=== PATIENT | female | born 1990 | race Caucasian/White ===

== ENCOUNTER 2016-07-23 12:45 | Emergency (ER) | payer OTHER ==
[~2016-07-23 12:45] MED LIST: ACET65SU PR; PRE-TAB3 PO
[2016-07-23] MEDS ORDERED: TETRACAINE 0.5% OPHTH SOLN 4ML As Ordered ONE (13:33)
--- NOTE | 2016-07-23 13:58 | EDDOCDS ---
Nurse's Notes [facility] Name: Ema Brice Age: 26 yrs Sex: Female : 1990 Arrival Date: 07/23/2016 Time: 12:45 Bed I10 / 23 Private MD: Kellie Vanessa Abdul Diagnosis: Injury of conjunctiva and corneal abrasion without foreign body, right eye Presentation: 07/23 12:55 Presenting complaint: Patient states: "my son scratched the inside of my eye." Pt ead reports incident occurred at approx 0900 this morning. Reports pain to right eye, difficult to keep open. Mechanism of Injury: No Mechanism of Injury. The patient denies any loss of vision. Adult Sepsis Screening: The patient does not have new or worsening altered mentation. Patient's respiratory rate is less than 22. Systolic blood pressure is greater than 100. Patient has a qSOFA score of 0- Negative Sepsis Screen. Suicide/Homicide risk assessment- the patient denies having any suicidal and/or homicidal ideations and does not present with any other emotional, behavioral or mental health complaints. Status: Patient is not a dining services director or dependent. Transition of care: patient was not received from another setting of care. 12:55 Acuity: NADEEM Level 4 ead 12:55 Method Of Arrival: Walkin/Carried/Asstd ead Triage Assessment: 12:57 General: Appears in no apparent distress, Behavior is appropriate for age, cooperative. ead Pain: Location: right eye Pain currently is 5 out of 10 on a pain scale. HIV screening NA for this visit Offered previously. EENT: Reports pain in right eye. Respiratory: Airway is patent Respiratory effort is even, unlabored. Derm: Skin is pink, warm & dry. 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 Prozac 20 mg Oral cap once daily 2. Xanax 1 mg Oral tab 3 times per day - PMHx: Anxiety; - PSHx: none; - Social history: Smoking status: Patient uses tobacco products, current every day smoker. No barriers to communication noted, The patient speaks fluent Yoruba, Speaks appropriately for age. - Family history: Not pertinent. - : The pt / caregiver states he / she is not on anticoagulants. Home medication list is obtained from the patient. - Exposure Risk Screening:: None identified. Screenin:55 Screening information is obtained from the patient. Fall risk: No risks identified. mk4 Assistance ADL's: requires no assistance with activities of daily living. Abuse/DV Screen: The patient / caregiver reports he/she is: not in a situation that causes fear, pain or injury. Nutritional screening: No deficits noted. Advance Directives: Currently, there is no health care proxy. There is no active DNR order. There is no living will. There is no Power of Records Management Coordinator. Advance directive information has not previously been placed in an [facility] medical record. Further advance directive information is declined. home support is adequate. Assessment: 13:55 General: Appears in no apparent distress, comfortable, Behavior is cooperative. mk4 Vital Signs: 12:47 BP 110 / 65; Pulse 75; Resp 18 S; Temp 96.4(O); Pulse Ox 100% on R/A; Weight 80.29 kg; gr2 Height 5 ft. 7 in. (170.18 cm) (R); Pain 6/10; 12:47 Body Mass Index 27.72 (80.29 kg, 170.18 cm) gr2 Vitals: 12:47 Log In Time: July 23, 2016 at 12:47. RN notified that patient meets Red Flag gr2 criteria. ED Course: 12:47 Patient visited by Rita Potter. gr2 12:47 Kellei Vanessa is Private Physician. gr2 12:47 Patient moved to Waiting gr2 12:55 Patient visited by Rita Potter. gr2 12:55 Patient moved to Pre RCE gr2 12:56 Triage Initiated ead 13:29 Lavinia Casas MD is Attending Physician. sd1 13:29 Patient moved to I10 23 ead 13:31 Patient visited by Lavinia Casas MD. sd1 13:38 Kellie Vanessa is Referral Physician. sd1 13:38 Levy Eagle is Referral Physician. sd1 13:55 The patient / caregiver is instructed regarding the plan of care and ED course. mk4 13:55 No IV's were initiated during this patient's visit. No procedures done that require mk4 assistance. Order Results: There are currently no results for this order. Outcome: 13:39 Discharge ordered by Provider. sd1 13:55 Discharge Assessment: Patient awake, alert and oriented x 3. No cognitive and/or mk4 functional deficits noted. Patient verbalized understanding of disposition instructions. Patient awake and alert. Discharge Assessment: patient administered narcotics - no. The following High Risk Discharge criteria are identified: None. Condition: good Condition: stable. No special radiology studies were completed. Property sent home with patient. 13:57 Patient left the ED. mk4 Signatures: Lavinia Casas MD MD sd1 Rita Potter gr2 Katarina Palmer, RN RN mk4 Florecita CisnerosRN RN dony ZULEMA
--- NOTE | 2016-07-23 13:58 | EDDOCDS ---
Physician Documentation [facility] Name: Ema Brice Age: 26 yrs Sex: Female : 1990 Arrival Date: 07/23/2016 Time: 12:45 Bed I10 / 23 Private MD: Kellie Vanessa Abdul Disposition: 07/23/16 13:39 Discharged to Home/Self Care. Impression: Injury of conjunctiva and corneal abrasion without foreign body, right eye. - Condition is Stable. - Discharge Instructions: Corneal Abrasion, Corneal Abrasion, [id number]. - Prescriptions for Percocet 5- 325 mg Oral Tablet - take 1 tablet by ORAL route every 6 hours As needed MDD: 4 tabs; 10 tablet. Erythromycin 5 mg/gram (0.5 %) Ophthalmic Ointment - apply 1 ribbon by OPHTHALMIC route every 8 hours; 1 tube. - Medication Reconciliation, Local Pharmacy Hours form. - Follow up: Kellie Vanessa; When: Call to arrange an appointment. Follow up: Levy Eagle; When: Call to arrange an appointment. - Problem is new. - Symptoms have improved. Historical: - Allergies: Naproxen; - Home Meds: 1. Prozac 20 mg Oral cap once daily 2. Xanax 1 mg Oral tab 3 times per day - PMHx: Anxiety; - PSHx: none; - Social history: Smoking status: Patient uses tobacco products, current every day smoker. No barriers to communication noted, The patient speaks fluent Mozambican, Speaks appropriately for age. - Family history: Not pertinent. - : The pt / caregiver states he / she is not on anticoagulants. Home medication list is obtained from the patient. - Exposure Risk Screening:: None identified. 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 7 in. (170.18 cm) (R); Pain 6/10; 12:47 Body Mass Index 27.72 (80.29 kg, 170.18 cm) gr2 MDM: 13:33 Visual Acuity ordered. sd1 13:54 Financial registration complete. lg Signatures: Lavinia Casas MD MD sd1 Maribel Zaman, Anderson Reg Katarina Palmer RN RN mk4 Florecita Cisneros RN RN dony MTDD
--- NOTE | 2016-07-25 14:58 | EDDOCDS ---
Physician Documentation [facility] Name: Ema Brice Age: 26 yrs Sex: Female : 1990 Arrival Date: 07/23/2016 Time: 12:45 Bed I10 / 23 Private MD: Kellie Vanessa Abdul Disposition: 07/23/16 13:39 Discharged to Home/Self Care. Impression: Injury of conjunctiva and corneal abrasion without foreign body, right eye. - Condition is Stable. - Discharge Instructions: Corneal Abrasion, Corneal Abrasion, [id number]. - Prescriptions for Percocet 5- 325 mg Oral Tablet - take 1 tablet by ORAL route every 6 hours As needed MDD: 4 tabs; 10 tablet. Erythromycin 5 mg/gram (0.5 %) Ophthalmic Ointment - apply 1 ribbon by OPHTHALMIC route every 8 hours; 1 tube. - Medication Reconciliation, Local Pharmacy Hours form. - Follow up: Kellie Vanessa; When: Call to arrange an appointment. Follow up: Levy Eagle; When: Call to arrange an appointment. - Problem is new. - Symptoms have improved. Historical: - Allergies: Naproxen; - Home Meds: 1. Prozac 20 mg Oral cap once daily 2. Xanax 1 mg Oral tab 3 times per day - PMHx: Anxiety; - PSHx: none; - Social history: Smoking status: Patient uses tobacco products, current every day smoker. No barriers to communication noted, The patient speaks fluent Turkish, Speaks appropriately for age. - Family history: Not pertinent. - : The pt / caregiver states he / she is not on anticoagulants. Home medication list is obtained from the patient. - Exposure Risk Screening:: None identified. 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 7 in. (170.18 cm) (R); Pain 6/10; 12:47 Body Mass Index 27.72 (80.29 kg, 170.18 cm) gr2 MDM: 13:33 Visual Acuity ordered. sd1 13:54 Financial registration complete. lg 14:29 [facility] Payment Agreement was scanned into [employer]GEN and attached to record. lg 15:12 T-Sheet-- Draft Copy was scanned into authorGEN and attached to record. gb Signatures: Lavinia Casas MD MD sd1 Roseann More, Reg Reg gb Maribel Zaman, Reg Reg lg Katarina Palmer RN RN mk4 Florecita CisnerosRN RN dony The chart was reviewed and I authenticate all verbal orders and agree with the evaluation and treatment provided.Attachments: 14:29 [facility] Payment Agreement lg 15:12 T-Sheet-- Draft Copy gb Chart Complete MTDD
--- NOTE | 2016-07-25 14:58 | EDDOCDS ---
Physician Documentation [facility] Name: Ema Brice Age: 26 yrs Sex: Female : 1990 Arrival Date: 07/23/2016 Time: 12:45 Bed I10 / 23 Private MD: Kellie Vanessa Abdul Disposition: 07/23/16 13:39 Discharged to Home/Self Care. Impression: Injury of conjunctiva and corneal abrasion without foreign body, right eye. - Condition is Stable. - Discharge Instructions: Corneal Abrasion, Corneal Abrasion, [id number]. - Prescriptions for Percocet 5- 325 mg Oral Tablet - take 1 tablet by ORAL route every 6 hours As needed MDD: 4 tabs; 10 tablet. Erythromycin 5 mg/gram (0.5 %) Ophthalmic Ointment - apply 1 ribbon by OPHTHALMIC route every 8 hours; 1 tube. - Medication Reconciliation, Local Pharmacy Hours form. - Follow up: Kellie Vanessa; When: Call to arrange an appointment. Follow up: Levy Eagle; When: Call to arrange an appointment. - Problem is new. - Symptoms have improved. Historical: - Allergies: Naproxen; - Home Meds: 1. Prozac 20 mg Oral cap once daily 2. Xanax 1 mg Oral tab 3 times per day - PMHx: Anxiety; - PSHx: none; - Social history: Smoking status: Patient uses tobacco products, current every day smoker. No barriers to communication noted, The patient speaks fluent Cambodian, Speaks appropriately for age. - Family history: Not pertinent. - : The pt / caregiver states he / she is not on anticoagulants. Home medication list is obtained from the patient. - Exposure Risk Screening:: None identified. 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 7 in. (170.18 cm) (R); Pain 6/10; 12:47 Body Mass Index 27.72 (80.29 kg, 170.18 cm) gr2 MDM: 13:33 Visual Acuity ordered. sd1 13:54 Financial registration complete. lg 14:29 [facility] Payment Agreement was scanned into [employer] and attached to record. lg 15:12 T-Sheet-- Draft Copy was scanned into [employer] and attached to record. gb Signatures: Lavinia Casas MD MD sd1 Roseann More, Reg Reg gb Maribel Zaman, Reg Reg lg Katarina Palmer RN RN mk4 Florecita CisnerosRN RN dony The chart was reviewed and I authenticate all verbal orders and agree with the evaluation and treatment provided.Attachments: 14:29 [facility] Payment Agreement lg 15:12 T-Sheet-- Draft Copy gb Chart Complete MTDD
--- NOTE | 2016-07-25 14:58 | EDDOCDS ---
Nurse's Notes [facility] Name: Ema Brice Age: 26 yrs Sex: Female : 1990 Arrival Date: 07/23/2016 Time: 12:45 Bed I10 / 23 Private MD: Kellie Vanessa Abdul Diagnosis: Injury of conjunctiva and corneal abrasion without foreign body, right eye Presentation: 07/23 12:55 Presenting complaint: Patient states: "my son scratched the inside of my eye." Pt ead reports incident occurred at approx 0900 this morning. Reports pain to right eye, difficult to keep open. Mechanism of Injury: No Mechanism of Injury. The patient denies any loss of vision. Adult Sepsis Screening: The patient does not have new or worsening altered mentation. Patient's respiratory rate is less than 22. Systolic blood pressure is greater than 100. Patient has a qSOFA score of 0- Negative Sepsis Screen. Suicide/Homicide risk assessment- the patient denies having any suicidal and/or homicidal ideations and does not present with any other emotional, behavioral or mental health complaints. Status: Patient is not a early childhood services coordinator or dependent. Transition of care: patient was not received from another setting of care. 12:55 Acuity: NADEEM Level 4 ead 12:55 Method Of Arrival: Walkin/Carried/Asstd ead Triage Assessment: 12:57 General: Appears in no apparent distress, Behavior is appropriate for age, cooperative. ead Pain: Location: right eye Pain currently is 5 out of 10 on a pain scale. HIV screening NA for this visit Offered previously. EENT: Reports pain in right eye. Respiratory: Airway is patent Respiratory effort is even, unlabored. Derm: Skin is pink, warm & dry. 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 Prozac 20 mg Oral cap once daily 2. Xanax 1 mg Oral tab 3 times per day - PMHx: Anxiety; - PSHx: none; - Social history: Smoking status: Patient uses tobacco products, current every day smoker. No barriers to communication noted, The patient speaks fluent Telugu, Speaks appropriately for age. - Family history: Not pertinent. - : The pt / caregiver states he / she is not on anticoagulants. Home medication list is obtained from the patient. - Exposure Risk Screening:: None identified. Screenin:55 Screening information is obtained from the patient. Fall risk: No risks identified. mk4 Assistance ADL's: requires no assistance with activities of daily living. Abuse/DV Screen: The patient / caregiver reports he/she is: not in a situation that causes fear, pain or injury. Nutritional screening: No deficits noted. Advance Directives: Currently, there is no health care proxy. There is no active DNR order. There is no living will. There is no Power of Brake Repairer Hydraulic. Advance directive information has not previously been placed in an [facility] medical record. Further advance directive information is declined. home support is adequate. Assessment: 13:55 General: Appears in no apparent distress, comfortable, Behavior is cooperative. mk4 Vital Signs: 12:47 BP 110 / 65; Pulse 75; Resp 18 S; Temp 96.4(O); Pulse Ox 100% on R/A; Weight 80.29 kg; gr2 Height 5 ft. 7 in. (170.18 cm) (R); Pain 6/10; 12:47 Body Mass Index 27.72 (80.29 kg, 170.18 cm) gr2 Vitals: 12:47 Log In Time: July 23, 2016 at 12:47. RN notified that patient meets Red Flag gr2 criteria. ED Course: 12:47 Patient visited by Rita Potter. gr2 12:47 Kellie Vanessa is Private Physician. gr2 12:47 Patient moved to Waiting gr2 12:55 Patient visited by Rita Potter. gr2 12:55 Patient moved to Pre RCE gr2 12:56 Triage Initiated ead 13:29 Lavinia Casas MD is Attending Physician. sd1 13:29 Patient moved to I10 23 ead 13:31 Patient visited by Lavinia Casas MD. sd1 13:38 Kellie Vanessa is Referral Physician. sd1 13:38 Levy Eagle is Referral Physician. sd1 13:55 The patient / caregiver is instructed regarding the plan of care and ED course. mk4 13:55 No IV's were initiated during this patient's visit. No procedures done that require mk4 assistance. 14:27 Patient name changed from Ema\\S\\May\\S\\Brice\\S\\ to Ema\\S\\M\\S\\Brice. EDMS 14:29 [facility] Payment Agreement was scanned into [employer] and attached to record. lg 15:12 T-Sheet-- Draft Copy was scanned into [employer] and attached to record. gb Order Results: There are currently no results for this order. Outcome: 13:39 Discharge ordered by Provider. sd1 13:55 Discharge Assessment: Patient awake, alert and oriented x 3. No cognitive and/or mk4 functional deficits noted. Patient verbalized understanding of disposition instructions. Patient awake and alert. Discharge Assessment: patient administered narcotics - no. The following High Risk Discharge criteria are identified: None. Condition: good Condition: stable. No special radiology studies were completed. Property sent home with patient. 13:57 Patient left the ED. mk4 Signatures: Dispatcher [employer] EDMS Lavinia Casas MD MD sd1 Roseann More, Reg Reg gb Maribel Zaman, Reg Reg lg Rita Potter gr2 Katarina Palmer RN RN mk4 Florecita Cisneros,RN RN dony Chart Complete ZULEMA
== END 2016-07-23 13:57 | disposition home or self-care (01) ==
LOC: M ED 12:45
DX: S05.01XA Injury of conjunctiva and corneal abrasion without foreign body, right eye, initial encounter (principal); W50.4XXA Accidental scratch by another person, initial encounter; Y92.019 Unspecified place in single-family (private) house as the place of occurrence of the external cause; Y93.89 Activity, other specified; Y99.8 Other external cause status; F41.9 Anxiety disorder, unspecified; F17.210 Nicotine dependence, cigarettes, uncomplicated; Z79.899 Other long term (current) drug therapy

== ENCOUNTER → 2019-01-11 | Outpatient (CLI) | payer OTHER ==
--- NOTE | 2019-01-11 22:30 | REP ---
Clinical: Pain. Technique: AP, lateral, bilateral oblique views of the right foot. Findings: No acute fracture dislocation. Skeletal structures, joint spaces, and surrounding soft tissues appear normal. Impression: No acute fracture or dislocation. Electronically Signed by Bucky Wagner MD 01/11/2019 10:22 P
--- NOTE | 2019-01-11 22:31 | REP ---
Clinical: Right ankle pain . Technique: AP, lateral, bilateral oblique views right ankle . Findings: No acute fracture or dislocation. Skeletal structures and joint spaces are intact and normal. Ankle mortise appears stable. No subcutaneous emphysema or radiodense foreign body. Impression: Normal right ankle radiograph series. Electronically Signed by Bucky Wagner MD 01/11/2019 10:22 P
== END ==
LOC: M RAD 16:11
PROVIDERS: ATTEND Family Medicine
DX: M25.571 Pain in right ankle and joints of right foot (principal)

== ENCOUNTER → 2022-09-18 | Outpatient (REF) | payer OTHER | LOC: M LAB REF 12:06 | PROVIDERS: ATTEND Physician Assistant | DX: J03.90 Acute tonsillitis, unspecified (principal) ==